=== PATIENT | male | born 1980 | race Caucasian/White ===

== ENCOUNTER 2020-10-30 20:00 | Outpatient (CLI) | payer OTHER, SELFPAY | END 2020-10-30 20:01 | disposition home or self-care (01) | LOC: SLEEP 10-31 09:02 | PROVIDERS: Family Provider Nurse Practitioner; PCP Emergency Medicine; Visit Provider Nurse Practitioner Family | DX: G47.33 Obstructive sleep apnea (adult) (pediatric) (principal) | CPT/HCPCS: 95810 ==

== ENCOUNTER 2020-11-22 20:00 | Outpatient (CLI) | payer OTHER, SELFPAY | END 2020-11-22 20:01 | disposition home or self-care (01) | LOC: SLEEP 11-23 10:36 | PROVIDERS: Family Provider Nurse Practitioner; PCP Emergency Medicine; Visit Provider Nurse Practitioner Family | DX: G47.33 Obstructive sleep apnea (adult) (pediatric) (principal) | CPT/HCPCS: 95811 ==

== ENCOUNTER → 2021-12-14 14:47 | Outpatient (BNVA) | payer OTHER, SELFPAY | PROVIDERS: Family Provider Nurse Practitioner; PCP Emergency Medicine; Visit Provider Emergency Medicine | DX: N50.812 Left testicular pain (principal); M79.652 Pain in left thigh | CPT/HCPCS: 73552; 81000 ==